=== PATIENT | male | born 1960 | race African-American/Black ===

== ENCOUNTER 2025-09-15 14:53 | Inpatient (IN) | payer MEDICARE, MEDICAID ==
[~2025-09-15] VITALS: Ht 152.4 cm; Wt 154.2 kg
[2025-09-15 15:54] LABS: BG BASE EXCESS -4.3 mmol/L (-2.0-3.0); BG CARBOXYHEMOGLOBIN 1.7 % (0.5-1.5); BG DEOXYHEMOGLOBIN 11.1 % (0.0-5.0); BG FLOW(L/min) 4.00 L/min; BG FRACTION INSPIRED OXYGEN 36; BG HCO3 ACT 19.8 mmol/L (21.0-28.0); BG METHEMOGLOBIN 0.3 % (0.5-1.5); BG OXYGEN SATURATION 88.7 % (94.0-98.0); BG OXYHEMOGLOBIN 86.9 % (94.0-98.0); BG PCO2 32.8 mmHg (35.0-48.0); BG PH 7.398 (7.350-7.450); BG PO2 56.9 mmHg (83.0-108.0); BG SAMPLE SITE LEFT RADIAL; BG TOTAL HEMOGLOBIN 10.6 g/dL (13.5-17.5); BG VENT MODE NASAL CANNULA
[2025-09-15 16:51] LABS: BASOPHILS % 0.9 % (0.0-2.0); EOSINOPHILS % 5.0 % (0.0-5.0); HEMATOCRIT. 31.0 % (42.0-52.0); HEMOGLOBIN. 9.6 g/dL (14.0-18.0); LYMPHOCYTES % 9.2 % (20.0-50.0); MEAN PLATELET VOLUME 10.3 fl (7.4-10.4); MONOCYTES % 8.8 % (2.0-8.0); NEUTROPHILS % 76.1 % (40.0-76.0); PLATELET 193 x1000/uL (130-400); RED BLOOD CELL COUNT 3.78 mill/uL (4.7-6.1); RED CELL DISTRIBUTION WIDTH 19.6 % (11.6-14.6)
[2025-09-15 17:04] LABS: CREATININE 0.8 mg/dL (0.6-1.3)
[2025-09-15 17:05] LABS: UREA NITROGEN BLOOD 22 mg/dL (9-23)
[2025-09-15 17:06] LABS: ASPARTATE AMINOTRANSFERASE 17 IU/L (<34)
[2025-09-15 17:07] LABS: BILIRUBIN DIRECT 1.1 mg/dL (<=3.0); BILIRUBIN TOTAL 1.9 mg/dL (0.1-1.0); PROTEIN TOTAL 6.5 g/dL (6.0-8.3)
[2025-09-15 17:09] LABS: TROPONIN I HIGH SENSITIVITY 135 ng/L (3.0-53)
[2025-09-15 17:11] LABS: INR 1.2
[2025-09-15] MEDS: FUROSEMIDE 40MG/4ML VIAL IVP ONE (17:27)
[2025-09-15 18:57] VITALS: BP 136/85; PULSE 96; RESP 18; TEMP 36.4; O2SAT 100
[2025-09-15 20:00] VITALS: BP 139/92; PULSE 94; RESP 20; TEMP 36.1; O2SAT 100
[2025-09-15] MEDS: IPRATROPIUM/ALBUTEROL 0.5-3(2.5)MG/3ML NEB HHN SCH (20:00)
[2025-09-15] MEDS ORDERED: ENOXAPARIN 40MG/0.4ML SYR SUBCUT SCH (21:00)
[2025-09-15] MEDS: LOSARTAN 50 MG TABLET PO SCH (21:30)
[2025-09-15] MEDS: CARVEDILOL 3.125 MG TABLET PO SCH (21:31)
[2025-09-15] MEDS: ENOXAPARIN 30MG/0.3ML SYR SUBCUT SCH (21:32)
[2025-09-15 22:06] VITALS: BP 139/92; PULSE 94; RESP 20; TEMP 36.0844
[2025-09-16] VITALS (10 sets, daily range): BP systolic 104–136; BP diastolic 57–86; PULSE 69–89; RESP 20–24; TEMP 35.8–36.4; O2SAT 93–100
[2025-09-16] MEDS ORDERED: ONDANSETRON HCL 4MG/2ML INJ IV PRN (11:30)
[2025-09-16] MEDS: POTASSIUM CHLORIDE 20MEQ TABLET SR PO NR (12:27)
[2025-09-16] MEDS: METOLAZONE 2.5MG TABLET PO NR (12:51)
[2025-09-16] MEDS: ASPIRIN 81MG TABLET PO SCH (12:51)
[2025-09-16] MEDS: ENOXAPARIN 120MG/0.8ML SYR SUBCUT SCH (12:54)
[2025-09-16] MEDS: ENOXAPARIN 150MG/ML SYR SUBCUT SCH (23:02)
[2025-09-16] MEDS: ATORVASTATIN CALCIUM 40MG TABLET PO SCH (23:02)
[2025-09-16] MEDS: FUROSEMIDE 40MG/4ML VIAL IVP SCH (23:03)
[2025-09-17] VITALS (7 sets, daily range): BP systolic 108–128; BP diastolic 67–81; PULSE 77–98; RESP 18–22; TEMP 36.3–36.7; O2SAT 97–100
[2025-09-18] VITALS: BP 125/69; PULSE 84; RESP 17; TEMP 36.4; O2SAT 99
[2025-09-18 04:00] VITALS: BP 117/73; PULSE 78; RESP 17; TEMP 36.4; O2SAT 99
[2025-09-18 08:10] VITALS: BP 140/110; PULSE 87; RESP 20; TEMP 36.7; O2SAT 94
[2025-09-18 08:19] LABS: HEMATOCRIT. 32.2 % (42.0-52.0); HEMOGLOBIN. 9.8 g/dL (14.0-18.0); MEAN PLATELET VOLUME 10.2 fl (7.4-10.4); PLATELET 173 x1000/uL (130-400); RED BLOOD CELL COUNT 3.86 mill/uL (4.7-6.1); RED CELL DISTRIBUTION WIDTH 19.4 % (11.6-14.6)
[2025-09-18 08:36] LABS: CREATININE 0.9 mg/dL (0.6-1.3); UREA NITROGEN BLOOD 20 mg/dL (9-23)
[2025-09-18 12:00] VITALS: BP 130/83; PULSE 81; RESP 22; TEMP 36.2; O2SAT 94
[2025-09-18] MEDS: BUDESONIDE 0.5MG/2ML NEB HHN SCH (13:00)
[2025-09-18 16:00] VITALS: BP 125/90; PULSE 102; RESP 22; TEMP 36.4; O2SAT 99
[2025-09-18 17:01] LABS: EOSINOPHILS % MANUAL 5.0 % (0.0-5.0); LYMPHOCYTES % MANUAL 18.0 % (20.0-50.0); MONOCYTES % MANUAL 15.0 % (2.0-8.0); NEUTROPHILS % MANUAL 62.0 % (45.0-75.0); PLATELET ESTIMATE NORMAL
[2025-09-18] MEDS: MAGNESIUM 2 G PREMIX 50 ML IV NR (18:46)
[2025-09-18 20:00] VITALS: BP 113/87; PULSE 84; RESP 20; TEMP 36.7; O2SAT 95
[2025-09-19] VITALS: BP 125/70; PULSE 80; RESP 20; TEMP 36.8; O2SAT 98
[2025-09-19 04:00] VITALS: BP 118/74; PULSE 97; RESP 20; TEMP 36.6; O2SAT 98
[2025-09-19 06:02] LABS: CREATININE 0.9 mg/dL (0.6-1.3); UREA NITROGEN BLOOD 26 mg/dL (9-23)
[2025-09-19 06:06] LABS: BASOPHILS % 0.7 % (0.0-2.0); EOSINOPHILS % 6.1 % (0.0-5.0); HEMATOCRIT. 30.3 % (42.0-52.0); HEMOGLOBIN. 9.1 g/dL (14.0-18.0); LYMPHOCYTES % 12.1 % (20.0-50.0); MEAN PLATELET VOLUME 10.4 fl (7.4-10.4); MONOCYTES % 11.1 % (2.0-8.0); NEUTROPHILS % 70.0 % (40.0-76.0); PLATELET 151 x1000/uL (130-400); RED BLOOD CELL COUNT 3.62 mill/uL (4.7-6.1); RED CELL DISTRIBUTION WIDTH 19.2 % (11.6-14.6)
[2025-09-19 08:00] VITALS: BP 122/87; PULSE 84; RESP 22; TEMP 36.2
[2025-09-19] MEDS ORDERED: EPINEPHRINE 0.1MG/ML (1:10,000) 10ML SYR ONE (09:38)
[2025-09-19] MEDS ORDERED: DIPHENHYDRAMINE 50MG/ML VIAL ONE (09:38)
[2025-09-19] MEDS ORDERED: IODIXANOL 320MG/ML 100 ML BOTTLE IV ONE (09:39)
[2025-09-19] MEDS ORDERED: ATROPINE SULFATE 1MG/10ML SYR ONE (09:39)
[2025-09-19] MEDS ORDERED: HEPARIN 1000 UNITS/ML 10ML ONE (09:39)
[2025-09-19] MEDS ORDERED: LIDOCAINE HCL 1% 20ML VIAL ONE (09:39)
[2025-09-19] MEDS ORDERED: VERAPAMIL HCL 2.5 MG/1 ML 2ML VIAL IV ONE (09:41)
[2025-09-19] MEDS ORDERED: FENTANYL CITRATE/PF 50MCG/ML 2ML VIAL ONE (10:22)
[2025-09-19] MEDS ORDERED: MIDAZOLAM HCL 2 MG/2 ML VIAL ONE (10:22)
[2025-09-19] MEDS ORDERED: FLUMAZENIL 0.1 MG/ML 5ML VIAL IV ONE (10:50)
[2025-09-19] MEDS ORDERED: ATROPINE SULFATE 1MG/10ML SYR IV PRN (11:15)
[2025-09-19] MEDS ORDERED: ACETAMINOPHEN 325MG TABLET PO PRN (11:15)
[2025-09-19 16:00] VITALS: BP 121/80; PULSE 80; RESP 19; TEMP 36.7; O2SAT 99
[2025-09-19 17:15] LABS: TROPONIN I HIGH SENSITIVITY 136 ng/L (3.0-53)
[2025-09-19 19:32] LABS: *AMPHETAMINES SCREEN URINE NEGATIVE (NEGATIVE)
[2025-09-19 19:33] LABS: *BARBITURATES SCREEN URINE NEGATIVE (NEGATIVE); *BENZODIAZEPINES SCREEN URINE PRESUMPTIVE POSITIVE (NEGATIVE); *COCAINE SCREEN URINE NEGATIVE (NEGATIVE); CANNABINOID URINE SCREEN NEGATIVE (NEGATIVE); ECSTASY MDMA SCREEN URINE NEGATIVE (NEGATIVE); METHADONE URINE SCREEN NEGATIVE (NEGATIVE); OPIATES URINE SCREEN NEGATIVE (NEGATIVE); PHENCYCLIDINE URINE SCREEN NEGATIVE (NEGATIVE)
[2025-09-19 19:37] LABS: CLARITY URINE CLEAR (CLEAR); COLOR URINE YELLOW (YELLOW); GLUCOSE URINE NEGATIVE (NEGATIVE); KETONES URINE NEGATIVE (NEGATIVE); LEUKOCYTE ESTERASE URINE NEGATIVE (NEGATIVE); NITRITE URINE NEGATIVE (NEGATIVE); OCCULT BLOOD URINE NEGATIVE (NEGATIVE); PH URINE 5.0 (4.5-8.0); PROTEIN URINE NEGATIVE (NEGATIVE); SPECIFIC GRAVITY URINE 1.030 (1.005-1.030); UROBILINOGEN URINE 0.2 E.U./dL (0.2-1.0)
[2025-09-19 19:59] VITALS: BP 125/93; PULSE 82; RESP 22; TEMP 37.3; O2SAT 96
[2025-09-19 20:12] VITALS: PULSE 87; RESP 20; O2SAT 97
[2025-09-20] VITALS (7 sets, daily range): BP systolic 104–145; BP diastolic 62–113; PULSE 81–98; RESP 13–26; TEMP 36.5–37.2; O2SAT 90–100
[2025-09-20 07:58] LABS: BASOPHILS % 1.1 % (0.0-2.0); EOSINOPHILS % 6.7 % (0.0-5.0); HEMATOCRIT. 29.3 % (42.0-52.0); HEMOGLOBIN. 9.0 g/dL (14.0-18.0); LYMPHOCYTES % 11.1 % (20.0-50.0); MEAN PLATELET VOLUME 10.1 fl (7.4-10.4); MONOCYTES % 12.2 % (2.0-8.0); NEUTROPHILS % 68.9 % (40.0-76.0); PLATELET 132 x1000/uL (130-400); RED BLOOD CELL COUNT 3.52 mill/uL (4.7-6.1); RED CELL DISTRIBUTION WIDTH 19.8 % (11.6-14.6)
[2025-09-20 08:22] LABS: CREATININE 0.9 mg/dL (0.6-1.3); UREA NITROGEN BLOOD 17 mg/dL (9-23)
[2025-09-21 00:08] VITALS: BP 126/93; PULSE 91; RESP 23; TEMP 36.8; O2SAT 99
[2025-09-21 04:49] VITALS: BP 132/109; PULSE 84; RESP 19; TEMP 36.8; O2SAT 100
[2025-09-21 08:00] VITALS: BP 118/89; PULSE 76; RESP 19; TEMP 37; O2SAT 99
[2025-09-21 12:00] VITALS: BP 114/92; PULSE 77; RESP 21; TEMP 36.7; O2SAT 97
[2025-09-21 16:00] VITALS: BP 127/76; PULSE 88; RESP 20; TEMP 36.9; O2SAT 98
[2025-09-21 20:00] VITALS: BP 119/91; PULSE 87; RESP 20; TEMP 36.7; O2SAT 100
[2025-09-22] VITALS: BP 140/89; PULSE 85; RESP 18; TEMP 36.7; O2SAT 100
[2025-09-22 04:00] VITALS: BP 131/94; PULSE 90; RESP 20; TEMP 36.7; O2SAT 98
[2025-09-22 08:00] VITALS: BP 133/95; PULSE 85; RESP 13; TEMP 36.8; O2SAT 99
[2025-09-22 12:00] VITALS: BP 115/85; PULSE 81; RESP 19; TEMP 36.9; O2SAT 98
[2025-09-22 16:00] VITALS: BP 136/97; PULSE 81; RESP 14; TEMP 36.4; O2SAT 96
[2025-09-22 20:30] VITALS: BP 125/89; PULSE 85; RESP 19; TEMP 36.8; O2SAT 97
[2025-09-23 00:31] VITALS: BP 113/77; PULSE 83; RESP 16; TEMP 36.7; O2SAT 97
[2025-09-23 04:00] VITALS: BP 132/91; PULSE 90; RESP 23; TEMP 36.9; O2SAT 98
[2025-09-23 08:00] VITALS: BP 127/69; PULSE 87; RESP 24; TEMP 36.5; O2SAT 93
[2025-09-23 12:00] VITALS: BP 117/86; PULSE 82; RESP 22; TEMP 36.8; O2SAT 87; O2SAT 94
[2025-09-23 16:00] VITALS: BP 120/90; PULSE 84; RESP 24; TEMP 36.4; O2SAT 95
[2025-09-23 20:00] VITALS: BP 134/87; PULSE 94; RESP 26; TEMP 36.7; O2SAT 95
[2025-09-24] VITALS: BP 121/73; PULSE 91; RESP 21; TEMP 36.6; O2SAT 93
[2025-09-24 04:00] VITALS: BP 129/73; PULSE 90; RESP 16; TEMP 36.4; O2SAT 100
[2025-09-24 08:00] VITALS: PULSE 87; RESP 16; TEMP 36.6; O2SAT 93
[2025-09-24 12:00] VITALS: BP 134/87; PULSE 87; RESP 13; TEMP 36.6; O2SAT 100
[2025-09-24 13:44] LABS: CREATININE 0.8 mg/dL (0.6-1.3); UREA NITROGEN BLOOD 17 mg/dL (9-23)
[2025-09-24 16:00] VITALS: BP 125/84; PULSE 89; RESP 21; TEMP 36.4; O2SAT 92
[2025-09-24 20:00] VITALS: PULSE 74; RESP 20; TEMP 36.8; O2SAT 97
[2025-09-25] VITALS: PULSE 79; RESP 20; TEMP 36.3; O2SAT 98
[2025-09-25] MEDS: IPRATROPIUM/ALBUTEROL 0.5-3(2.5)MG/3ML NEB HHN SCH (02:23)
[2025-09-25 04:00] VITALS: PULSE 74; RESP 20; TEMP 36.8; O2SAT 98
[2025-09-25 08:00] VITALS: BP 127/94; PULSE 89; RESP 17; O2SAT 96
[2025-09-25] MEDS: POTASSIUM CHLORIDE 20MEQ TABLET SR PO NR (09:26)
[2025-09-25] MEDS: KCL 20MEQ/100ML PREMIX 100 ML IV NR (09:26)
[2025-09-25] MEDS: METHYLPREDNISOLONE SOD SUCC 125MG/2ML (ACT-O-VIAL) IV NR (10:29)
[2025-09-25 20:00] VITALS: BP 128/99; PULSE 91; RESP 17; TEMP 36.7; O2SAT 96
[2025-09-26] VITALS: BP 112/81; PULSE 96; RESP 21; TEMP 36.9; O2SAT 96
[2025-09-26 04:00] VITALS: BP 114/90; PULSE 96; RESP 23; TEMP 37.1; O2SAT 96
[2025-09-26 20:00] VITALS: BP 131/86; PULSE 95; RESP 16; TEMP 36.9; O2SAT 97
[2025-09-27] MEDS ORDERED: LIP40 PO (10:26)
[2025-09-27] MEDS ORDERED: COR3 PO (10:26)
[2025-09-27] MEDS ORDERED: ASPI-1160 PO (10:26)
[2025-09-27] MEDS ORDERED: LOSA50TA41 PO (10:26)
[2025-09-27] MEDS ORDERED: EMPA10TA MT (10:26)
[2025-09-27] MEDS ORDERED: FURO-151 MT (10:26)
[2025-09-27] MEDS ORDERED: SPIR25TA6 MT (10:26)
[2025-09-27] MEDS ORDERED: ALBU18HF2 IH (10:27)
[2025-09-27 12:00] VITALS: BP 125/88; PULSE 90; RESP 19; TEMP 36.8; O2SAT 97
[2025-09-27 12:15] VITALS: BP 125/88; PULSE 90; RESP 19; TEMP 98.2
== END 2025-09-27 15:59 | disposition home or self-care (01) | DRG 280 ==
LOC: EDBEDREQ 15:23 → ER 15:40 → EDBEDREQTM 17:21 → EDBEDREQ 17:21 → ENRESERV 17:25 → 8WST 17:42 → 3WST 09-19 12:24
PROVIDERS: ADMIT Internal Medicine; ATTEND Internal Medicine
PROC: 4A023N7 Measurement of Cardiac Sampling and Pressure, Left Heart, Percutaneous Approach (ICD-10-PCS; principal; 2025-09-19)
PROC: B2111ZZ Fluoroscopy of Multiple Coronary Arteries using Low Osmolar Contrast (ICD-10-PCS; 2025-09-19)
DX: I21.4 Non-ST elevation (NSTEMI) myocardial infarction (principal); I50.23 Acute on chronic systolic (congestive) heart failure; J96.01 Acute respiratory failure with hypoxia; I11.0 Hypertensive heart disease with heart failure; I42.0 Dilated cardiomyopathy; Z68.44 Body mass index [BMI] 60.0-69.9, adult; E11.9 Type 2 diabetes mellitus without complications; D64.9 Anemia, unspecified; I08.3 Combined rheumatic disorders of mitral, aortic and tricuspid valves; R04.0 Epistaxis; E66.01 Morbid (severe) obesity due to excess calories; I25.10 Atherosclerotic heart disease of native coronary artery without angina pectoris; F17.210 Nicotine dependence, cigarettes, uncomplicated; E87.6 Hypokalemia; I25.2 Old myocardial infarction; Z82.49 Family history of ischemic heart disease and other diseases of the circulatory system
CPT/HCPCS: 36415; 36600; 71045; 80048; 80076; 80305; 81003; 82375; 82805; 83735; 83880; 84484; 85025; 93005; 93306; 93458; 94070; 94640; 94664; 96374; 98960; 99285; A4606; C1769; C1887; C1893; J0461; J1200; J1644; J1650; J1938; J2003; J2250; J3010; J3475; J3490; J7626; Q9967